=== PATIENT | male | born 1990 | race Caucasian/White ===

== ENCOUNTER 2017-04-30 11:00 | Emergency (ER) | payer OTHER ==
[~2017-04-30] VITALS: Ht 185.4 cm; Wt 72.6 kg
[2017-04-30] MEDS ORDERED: IBUP800 PO (13:27)
[2017-04-30] MEDS ORDERED: CYCL10 PO (13:32)
[2017-11-17] MEDS ORDERED: Zofran Odt4 MG PO (23:58)
== END 2017-04-30 13:32 | disposition home or self-care (01) ==
LOC: ER 11:00
DX: R07.89 Other chest pain (principal); M54.6 Pain in thoracic spine; F17.200 Nicotine dependence, unspecified, uncomplicated
CPT/HCPCS: 71046; 96372; 99283; J1885

== ENCOUNTER 2017-11-08 12:27 | Emergency (ER) | payer OTHER ==
[~2017-11-08] VITALS: Ht 188 cm; Wt 72.6 kg
[~2017-11-08 12:27] MED LIST: CYCL10 PO; IBUP800 PO
[2017-11-08] MEDS ORDERED: Monodox100 MG PO (13:06)
== END 2017-11-08 13:30 | disposition home or self-care (01) ==
LOC: ER 12:27
DX: L02.211 Cutaneous abscess of abdominal wall (principal); F17.200 Nicotine dependence, unspecified, uncomplicated
CPT/HCPCS: 10060; 99282-25

== ENCOUNTER 2018-04-25 10:47 | Emergency (ER) | payer SELFPAY ==
[~2018-04-25] VITALS: Ht 188 cm; Wt 76.7 kg
[~2018-04-25 10:47] MED LIST changes: +Monodox100 MG PO; +Zofran Odt4 MG PO
[2018-04-25 11:54] LABS: BASOPHILS ABSOLUTE AUTO 0.05 K/mm3 (0.00-0.23); BASOPHILS PERCENT AUTO 0 % (0-2); EOSINOPHILS ABSOLUTE AUTO 0.11 K/mm3 (0.00-0.68); EOSINOPHILS PERCENT AUTO 1 % (0-6); Hematocrit 49.2 % (37.0-53.0); IMMATURE GRAN ABSOLUTE AUTO 0.09 K/mm3 (0.00-0.10); IMMATURE GRAN PERCENT AUTO 0 % (0-1); LYMPHOCYTES ABSOLUTE AUTO 0.82 K/mm3 (0.84-5.20); LYMPHOCYTES PERCENT AUTO 4 % (21-46); MONOCYTES ABSOLUTE AUTO 1.09 K/mm3 (0.16-1.47); MONOCYTES PERCENT AUTO 5 % (4-13); Mean Corpuscular HGB 32.5 pg (26.0-34.0); Mean Corpuscular HGB Conc 34.6 g/dL (31.5-36.5); Mean Corpuscular Volume 94 fL (80-100); Mean Platelet Volume 10.3 fL (9.1-12.4); NEUTROPHILS ABSOLUTE AUTO 18.28 K/mm3 (1.96-9.15); NEUTROPHILS PERCENT AUTO 90 % (41-73); Platelet Count 253 K/mm3 (150-400); RDW Coefficient Variation 11.9 % (11.7-14.2); RDW Standard Deviation 41.4 fL (35.1-46.3); Red Blood Cell Count 5.23 M/mm3 (4.30-5.90); White Blood Cell Count 20.44 K/mm3 (4.00-11.30)
[2018-04-25 12:11] LABS: Alanine Aminotransfer (ALT/SGP 27 U/L (12-78); Albumin, Blood 4.2 g/dL (3.4-5.0); Albumin/Globulin Ratio 1.1 (0.8-1.8); Alk Phos 76 U/L (50-136); Anion Gap 6 mmol/L (6-16); Aspartate Aminotrans (AST/SGOT 15 U/L (12-37); Bilirubin, Total 0.7 mg/dL (0.1-1.0); Blood Urea Nitrogen 16 mg/dL (8-24); Bun/Creatinine Ratio 18.1 (12.0-20.0); CO2, Blood 31 mmol/L (21-32); Calcium, Blood 9.5 mg/dL (8.5-10.1); Chloride, Blood 103 mmol/L (98-108); Creatinine, Blood 0.89 mg/dL (0.60-1.20); Globulin, Blood 3.8 g/dL (2.2-4.0); Glomerular Filtration Rate >60 (60-); Glucose, Blood 129 mg/dL (70-99); Potassium, Blood 4.3 mmol/L (3.5-5.5); Sodium, Blood 140 mmol/L (136-145)
== END 2018-04-25 13:36 | disposition left against medical advice (07) ==
LOC: ER 10:47
PROVIDERS: Physician Assistant
DX: Z53.21 Procedure and treatment not carried out due to patient leaving prior to being seen by health care provider (principal)
CPT/HCPCS: 36415; 80053; 83690; 85025; 96374; 99281-25; J2405